=== PATIENT | male | born 1950 | race African-American/Black ===

== ENCOUNTER 2021-11-12 21:38 | Emergency (ER) | payer OTHER ==
[~2021-11-12] VITALS: Ht 177.8 cm; Wt 89.9 kg
[2021-11-12] MEDS ORDERED: IOHEXOL-350 100 ML BOTTLE ONE (23:13)
[2021-11-12 23:55] VITALS: BP 139/97
== END 2021-11-13 | disposition left against medical advice (07) ==
LOC: ER 21:38 → EDBD 21:38 → ER 11-13 → CANBEDREQ 11-13 06:31
DX: R45.1 Restlessness and agitation (principal); R41.82 Altered mental status, unspecified; J44.9 Chronic obstructive pulmonary disease, unspecified; E78.00 Pure hypercholesterolemia, unspecified; I10 Essential (primary) hypertension
CPT/HCPCS: 70450; 70496; 70498; 99285; Q9967